=== PATIENT | female | born 1945 | race Caucasian/White ===

== ENCOUNTER 2022-11-23 09:45 | Inpatient (IN) | payer OTHER ==
[~2022-11-23] VITALS: Ht 160 cm; Wt 680.4 kg
[2022-11-23] MEDS ORDERED: METFORMIN HCL500 M3 PO (11:31)
[2022-11-23] MEDS ORDERED: SYNTHROID100 MCG PO (11:32)
[2022-11-23] MEDS ORDERED: CHILDREN'S ASPI81 MG PO (11:32)
[2022-11-23] MEDS ORDERED: IRBESARTAN-HCT1 EAC1 PO (11:32)
[2022-11-23] MEDS ORDERED: CRESTOR20 MG PO (11:32)
[2022-11-23] MEDS ORDERED: FOSAMAX70 MG PO (11:33)
[2022-11-23] MEDS ORDERED: DAFLONEX-XL 11300 MG PO (11:33)
[2022-11-23] MEDS ORDERED: LYRICA50 MG PO (11:33)
[2022-11-23 11:47] LABS: HEMOGLOBIN 11.8 g/dL (12.0-15.00); MEAN CELL VOLUME 84.3 fL (80.00-100.00); MEAN CORPUSCULAR HEMOGLOBIN 28.5 pg (27.00-32.0); MEAN CORPUSCULAR HGB CONC 33.8 g/dl (32.0-36.0); PLATELET COUNT 153 K/uL (150-450); RED BLOOD COUNT 4.15 M/uL (4.00-6.00); RED CELL DISTRIBUTION WIDTH 14.7 % (11.5-14.5)
[2022-11-23 12:11] LABS: INR 0.98; PROTHROMBIN TIME 10.3 SECONDS (9.0-11.5)
[2022-11-23 12:16] LABS: ALBUMIN 3.9 gm/dL (3.4-5.0); BILIRUBIN TOTAL 0.78 mg/dL (0.3-1.2); CALCIUM 9.9 mg/dL (8.5-10.1); CREATININE SERUM 0.59 mg/dL (0.55-1.02); GFR 98.32; GLOBULINA 3.1 G/DL (2.4-3.5); POTASSIUM 3.9 mEq/L (3.5-5.1)
[2022-11-23 14:00] LABS: PH,URINE 6.5 (5.0-8.0); URINE APPEARANCE Clear; URINE BILIRRUBIN Negative (NEGATIVE); URINE BLOOD Negative; URINE COLOR Yellow; URINE GLUCOSE Negative (NEGATIVE); URINE LEUKOCYTE Trace; URINE NITRATE Negative; URINE PROTEIN Negative (NEGATIVE)
[2022-11-23 14:04] LABS: URINE EPITHELIAL CELLS 36.2 uL (0.0-38.8); URINE RBC 28.1 uL (0.0-20.8); URINE WBC 14.6 uL (0.0-23.2)
[2022-12-01 07:04] LABS: HEMATOCRIT 31.1 % (36.0-45.00); HEMOGLOBIN 10.6 g/dL (12.0-15.00); MEAN CELL VOLUME 84.6 fL (80.00-100.00); MEAN CORPUSCULAR HEMOGLOBIN 28.9 pg (27.00-32.0); MEAN CORPUSCULAR HGB CONC 34.2 g/dl (32.0-36.0); RED BLOOD COUNT 3.68 M/uL (4.00-6.00); RED CELL DISTRIBUTION WIDTH 14.3 % (11.5-14.5)
[2022-12-01 07:33] LABS: PLATELET COUNT 126 K/uL (150-450)
[2022-12-01] MEDS ORDERED: DUI500 PO (07:41)
[2022-12-01] MEDS ORDERED: PERCOCET 5-3251 EACH PO (07:41)
[2022-12-01] MEDS ORDERED: ELIQUIS2.5 MG PO (07:41)
[2022-12-02 07:35] LABS: HEMATOCRIT 29.2 % (36.0-45.00); MEAN CELL VOLUME 84.3 fL (80.00-100.00); MEAN CORPUSCULAR HEMOGLOBIN 28.9 pg (27.00-32.0); MEAN CORPUSCULAR HGB CONC 34.3 g/dl (32.0-36.0); RED BLOOD COUNT 3.47 M/uL (4.00-6.00); RED CELL DISTRIBUTION WIDTH 13.9 % (11.5-14.5)
[2022-12-02 07:54] LABS: PLATELET COUNT 125 K/uL (150-450)
== END 2022-12-02 15:01 | DRG 470 ==
LOC: O/R 11-30 05:59 → SURH 11-30 05:59 → SURG 11-30 13:01 → SURH 11-30 13:03
PROVIDERS: ADMIT Orthopaedic Surgery; ATTEND Orthopaedic Surgery
PROC: 0MNP0ZZ Release Left Knee Bursa and Ligament, Open Approach (ICD-10-PCS; 2022-11-30)
PROC: 0SRD0JZ Replacement of Left Knee Joint with Synthetic Substitute, Open Approach (ICD-10-PCS; principal; 2022-11-30 13:00)
DX: M17.12 Unilateral primary osteoarthritis, left knee (principal); M22.12 Recurrent subluxation of patella, left knee